=== PATIENT | female | born 1990 | race Caucasian/White ===

== ENCOUNTER → 2016-04-23 | Outpatient (REF) | payer BC ==
[~2016-04-23] MED LIST: ACET50TA PO; IBUP-1114 PO; PRENTAB9 PO
== END ==
LOC: M SFHCLERA 08:56
PROVIDERS: ATTEND Family Medicine
DX: D22.5 Melanocytic nevi of trunk (principal)

== ENCOUNTER → 2016-07-05 | Outpatient (REF) | payer BC | LOC: M SFHCLERA 13:41 | PROVIDERS: ATTEND Family Medicine | DX: R50.9 Fever, unspecified (principal) ==

== ENCOUNTER → 2016-08-08 | Outpatient (REF) | payer BC | LOC: M SFHCLERA 10:03 | PROVIDERS: ATTEND Family Medicine | DX: R30.0 Dysuria (principal) ==

== ENCOUNTER → 2016-10-28 | Outpatient (CLI) | payer BC ==
--- NOTE | 2016-10-28 10:41 | REP ---
OB ULTRASOUND: Real-time sonographic evaluation of the gravid uterus performed. There is a single living intrauterine gestation. Estimated gestational age is 20 weeks 2 days with EDC 03/15/2017 based on the LMP. Today's measurements indicate appropriate growth. BPD 45 mm = 19 weeks 4 days, 29th percentile HC 167 mm = 19 weeks 3 days, 22nd percentile AC 146 mm = 20 weeks 0 days, 42nd percentile Femur length 32 mm = 19 weeks 6 days, 37th percentile HC/AC ratio 1.14 within normal range. Estimated weight 314 grams, 30th percentile. Cervix is closed and measures 3.5 cm in length. heart rate 144 beats per minute. SEEN/GROSSLY UNREMARKABLE Lateral ventricles Yes Posterior fossa Yes Upper lip Yes Four-chamber heart No LVOT No RVOT No Stomach Yes Cord insertion No Three vessel cord Yes Kidneys Yes Bladder Yes Spine Yes position: Variable. Placenta: Posterior and fundal and grade 0 with no previa or abruption. Amniotic fluid: Within normal limits. Signed by Jonathon Ramirez MD 10/28/2016 01:27 P
== END ==
LOC: M RAD 09:02
PROVIDERS: ATTEND Nurse Practitioner Women's Health
DX: Z36 Encounter for antenatal screening of mother (principal)

== ENCOUNTER → 2016-12-05 | Outpatient (CLI) | payer BC ==
--- NOTE | 2016-12-05 14:06 | REP ---
FOLLOW-UP OB ULTRASOUND: 12/05/2016 COMPARISON: 10/28/2016 CLINICAL HISTORY: Incomplete anatomy screen. Evaluate four-chamber heart and cord insertion to be revisited. FINDINGS: There is a single intrauterine gestation in a transverse lie with the head towards the maternal right. There is a posterior fundal grade 0 placenta without previa or abruption. Cervix is 6 cm long and closed with the bladder quite full. By initial ultrasound she is 25 weeks. Biometry: BPD 6.5 cm = 26 weeks 2 days HC 22.7 cm = 24 weeks 5 days AC 22.5 cm = 26 weeks 6 days FL 4.3 cm = 24 weeks HL 4.2 cm = 25 weeks 2 days CER 2.8 cm = 24 weeks 6 days This gives average ultrasound age of 25 weeks 2 days with EDC 03/18/2017. Based on LMP she is 25 weeks 5 days with EDC 03/15/2017. This is normal interval growth. The estimated weight is 837 grams or 1 pound 13 ounces, which is 42nd percentile for dating based on LMP. Anatomy screen shows heart rate 144 and regular. The cranial vault, lateral ventricles, choroid plexus, thalami, cavum septum pellucidum, cerebellum, cisterna magna, nuchal fold, face and profile views and the lungs are unremarkable. The four-chamber heart view is also unremarkable. There is an echogenic focus within the left ventricle, likely on the chordae tendineae and a benign finding. The ventricular outflow tracts are intact. The diaphragm, left-sided stomach bubble, three-vessel cord, cord insertion, kidneys and bladder, transverse and longitudinal images of the spine and the upper and lower extremities are seen and all unremarkable. IMPRESSION: 1. Single intrauterine gestation in transverse position with head towards maternal right and with a closed 6 cm long cervix. 2. Heart rate 144 and regular with visually normal amniotic fluid volume and a posterior fundal grade 0 placenta without previa or abruption. 3. Lateral ventricles symmetric and grossly unremarkable. This gives average ultrasound age 25 weeks 2 days which corresponds well to the LMP dating 25 weeks 5 days and initial ultrasound dating 25 weeks. The estimated weight is 42 percentile, normal interval growth. Signed by Cesar Torres MD 12/05/2016 04:44 P
== END ==
LOC: M RAD 11:01
PROVIDERS: ATTEND Obstetrics & Gynecology
DX: Z36 Encounter for antenatal screening of mother (principal)

== ENCOUNTER → 2016-12-28 | Outpatient (CLI) | payer BC ==
[2016-12-28 18:41] LABS: MEAN CORPUSCULAR HEMOGLOBIN 29.2 pg (27.0-33.0); MEAN CORPUSCULAR HGB CONC 31.9 g/dl (32.0-36.5); MEAN CORPUSCULAR VOLUME 91.6 fl (80.0-96.0); RED CELL DISTRIBUTION WIDTH 13.5 % (11.5-14.5); WHITE BLOOD COUNT 11.4 K/mm3 (4.0-10.0)
== END ==
LOC: M WUC 11:10
PROVIDERS: ATTEND Obstetrics & Gynecology
DX: Z34.82 Encounter for supervision of other normal pregnancy, second trimester (principal)

== ENCOUNTER → 2017-02-20 | Outpatient (REF) | payer BC | LOC: M LAB REF 17:09 | PROVIDERS: ATTEND Specialist | DX: Z34.83 Encounter for supervision of other normal pregnancy, third trimester (principal) ==

== ENCOUNTER 2017-03-17 23:14 | Inpatient (IN) | payer BC ==
[~2017-03-17] VITALS: Ht 154.9 cm; Wt 75.8 kg
[2017-03-17 23:30] VITALS: BP 142/104
[2017-03-17] MEDS ORDERED: LR 1,000 ML IV SCH (23:36)
[2017-03-17] MEDS ORDERED: LACTATED RINGER'S 1000 ML IV STA (23:36)
[2017-03-17] MEDS ORDERED: PENICILLIN G POTASSIUM IV 5 MU in D5W MINI-BAG PLUS 100 ML IV STA (23:36)
[2017-03-18] VITALS (36 sets, daily range): BP systolic 99–181; BP diastolic 51–96
[2017-03-18] MEDS ORDERED: FENTANYL 2MCG/ML ROPIVACAINE 0.2% IN 0.9% NACL 200ML IVBAG As Ordered ONE (00:07)
[2017-03-18] MEDS ORDERED: OXYTOCIN 30 UNITS IN 0.9% NaCl 500ML IV BAG (J2590) As Ordered ONE (00:08)
[2017-03-18 00:22] LABS: MEAN CORPUSCULAR HEMOGLOBIN 29.2 pg (27.0-33.0); MEAN CORPUSCULAR HGB CONC 32.5 g/dl (32.0-36.5); PLATELET COUNT, AUTOMATED 196 10^3/uL (150-450); RED CELL DISTRIBUTION WIDTH 13.9 % (11.5-14.5); WHITE BLOOD COUNT 12.6 10^3/uL (4.0-10.0)
--- NOTE | 2017-03-18 00:26 | HPE ---
DATE OF ADMISSION: 03/17/2017 Yadira is a 27-year-old 3, para 1-0-1-1 at 39-4/7 weeks gestation with an estimated date of confinement (EDC) of 03/20/2017 based on first trimester ultrasound. She presents to labor and delivery today with onset of uncomfortable contractions about every 4-5 minutes. Denies vaginal bleeding and leakage of fluid. The fetus has been active. care initiated at alternative office in the first trimester with a transfer of care in the second trimester to [facility]. course has been uncomplicated. OBSTETRICAL HISTORY: 1. August 2014 at 9 weeks gestation had an ectopic . 2. January 2016 at 39 weeks gestation 7 pound female, spontaneous vaginal delivery. OBSTETRICAL LABORATORIES: O positive, antibody screen negative, rubella immune, VDRL nonreactive. Urine culture no growth. Hepatitis B surface antigen negative, HIV negative. Hepatitis C antibody nonreactive. Gonorrhea and chlamydia negative. Sequential screen normal. Gestational diabetic screening 114. Group B Streptococcus (GBS) is positive. PAST MEDICAL HISTORY: 1. Abnormal Pap smear. 2. Childhood varicella. SURGERIES: 1. [place] teeth. 2. Appendectomy. FAMILY HISTORY: Noncontributory. SOCIAL HISTORY: The patient is . Her is at bedside and supportive. She is a nonsmoker. Denies alcohol and drug use. No history of any sexually transmitted infections and denies history of abuse physical, sexual and emotional. ALLERGIES: No known drug allergies. CURRENT MEDICATIONS: Include vitamins. OBJECTIVE: Temperature 97.7, pulse 104, blood pressure is 142/104 at this time. She is alert and oriented, uncomfortable with contractions tense and deep breathing. heart rate is 140, moderate variability, positive accelerations, no decelerations observed. She is natalya approximately every 3-4 minutes. Abdomen is gravid, cephalic presentation. Estimated weight 7 pounds. Sterile vaginal exam: 6 cm, 100% effaced, -1 station. ASSESSMENT: Intrauterine at 39-4/7 weeks, heart rate category one, labor. PLAN: Admit the patient to labor and delivery. Intravenous (IV) fluid bolus as the patient desires an epidural for her labor coping. Routine labs, as well as pre-eclamptic profile and a spot urine. Start group B Streptococcus (GBS) prophylaxis as well. I do anticipate continued labor progress and a spontaneous vaginal delivery.
[2017-03-18] MEDS ORDERED: ePHEDrine SULFATE 25 MG/5 ML(5MG/ML) SYRINGE IV PRN (01:15)
[2017-03-18] MEDS ORDERED: ONDANSETRON 4MG/2ML VIAL (J2405) IV PRN ×2 (01:15→11:15)
[2017-03-18] MEDS ORDERED: EPIDURAL/PCA KEYS XX PRN (01:15)
[2017-03-18] MEDS ORDERED: EPIDURAL COMMENT XX SCH (01:15)
[2017-03-18] MEDS ORDERED: REFRIGERATOR IV KEYS XX PRN (01:15)
[2017-03-18] MEDS ORDERED: diphenhydrAMINE INJ 50MG/ML VIAL (J1200) IV PRN (01:15)
[2017-03-18] MEDS ORDERED: FENTANYL/ROPIVACAINE/NACL BAG 200 ML EPIDURAL SCH (01:15)
[2017-03-18] MEDS ORDERED: NALOXONE INJ 0.4 MG/1 ML VIAL (J2310) IV PRN (01:15)
[2017-03-18] MEDS ORDERED: LACTATED RINGER'S 1000 ML IV PRN (01:15)
[2017-03-18 02:12] LABS: ALT/SGPT 15 U/L (12-78); AST/SGOT 20 U/L (7-37); BILIRUBIN,TOTAL 0.2 MG/DL (0.2-1.0); CREATININE FOR GFR 0.68 MG/DL (0.55-1.02); GLOMERULAR FILTRATION RATE > 60.0 (>60); URIC ACID 5.9 MG/DL (2.6-6.0)
[2017-03-18] MEDS: PENICILLIN G POTASSIUM IV 2.5 MU in APPROPRIATE DILUENT 1 EA IV SCH ×2 (04:10→07:57)
[2017-03-18] MEDS ORDERED: OXYTOCIN DRIP 30 UNITS in APPROPRIATE DILUENT 1 EA IV SCH (06:15)
[2017-03-18] MEDS ORDERED: MEASLES,MUMPS,RUBELLA VACCINE INJ (MMR-II) (90707) SC SCH (11:15)
[2017-03-18] MEDS ORDERED: METHYLERGONOVINE MALEATE 0.2 MG TAB PO PRN (11:15)
[2017-03-18] MEDS ORDERED: DOCUSATE SODIUM 100 MG CAP PO PRN (11:15)
[2017-03-18] MEDS ORDERED: LIDOCAINE 1% MDV INJ 50 ML VIAL INFIL ONE (11:15)
[2017-03-18] MEDS ORDERED: OXYTOCIN DRIP 30 UNITS in APPROPRIATE DILUENT 1 EA IV ONE (11:15)
[2017-03-18] MEDS ORDERED: DIBUCAINE 1% OINTMENT 30GM TOP PRN (11:15)
[2017-03-18] MEDS ORDERED: IBUPROFEN 800 MG TAB PO PRN (11:15)
[2017-03-18] MEDS ORDERED: ACETAMINOPHEN 500 MG TAB PO PRN (11:15)
[2017-03-18] MEDS ORDERED: RHOGAM 300 MCG (1500 IU) INJ (J2790) IM SCH (11:15)
--- NOTE | 2017-03-18 11:25 | DN ---
DATE: 03/18/2017 PREDELIVERY DIAGNOSIS: Term , labor. POSTDELIVERY DIAGNOSIS: Delivered. PROCEDURE: Spontaneous vaginal delivery. SEMICONDUCTOR WAFER INSPECTOR: Dr. Salomon Tovar ANESTHESIA: Epidural. ESTIMATED BLOOD LOSS: 300 mL. FINDINGS: 7 pound 9 ounce female infant, Apgars 8 and 9. DELIVERY SUMMARY: After 40 minute second stage, the patient spontaneously delivered a 7 pound 9 ounce female infant, Apgars 8 and 9, under epidural anesthesia. There was no nuchal cord. The shoulders delivered with ease. The infant cried spontaneously and was handed to the mother. The cord was doubly clamped and cut. The placenta delivered spontaneously and appeared to be intact. The patient received IV Pitocin immediately after delivery of the placenta. A first degree perineal laceration was repaired with #2-0 chromic in the usual fashion. Sponge and needle counts were correct.
[2017-03-19 06:23] VITALS: BP 136/81
[2017-03-19] MEDS: PRENATAL VITAMINS CHEWABLE TABLET PO SCH ×2 (07:50→09:08)
[2017-03-19 18:00] VITALS: BP 156/83
[2017-03-20 06:00] VITALS: BP 115/67
[2017-03-20] MEDS ORDERED: MOTR200T44 PO (08:51)
[2017-03-20] MEDS ORDERED: ACET50TA PO (08:52)
[2017-03-20] MEDS ORDERED: COLA100C5 PO (08:53)
[2017-03-20] MEDS: PRENATAL VITAMINS CHEWABLE TABLET PO SCH (10:10)
== END 2017-03-20 10:15 | disposition home or self-care (01) | DRG 560 ==
LOC: M LDO 23:14 → M LDI 23:34 → M OBS 03-18 12:29
PROVIDERS: ADMIT Advanced Practice Midwife; ATTEND Advanced Practice Midwife
PROC: 10E0XZZ Delivery of Products of Conception, External Approach (ICD-10-PCS; principal; 2017-03-18)
PROC: 0HQ9XZZ Repair Perineum Skin, External Approach (ICD-10-PCS; 2017-03-18)
DX: O70.0 First degree perineal laceration during delivery (principal); O99.820 Streptococcus B carrier state complicating pregnancy; Z37.0 Single live birth; Z3A.39 39 weeks gestation of pregnancy